=== PATIENT | female | born 1985 | race American Indian/Alaskan Native ===

== ENCOUNTER 2016-09-12 00:37 | Emergency (ER) | payer SELFPAY ==
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
[2016-09-12 03:38] LABS: Urine Drugs of Abuse Note Disclamer
[2016-09-12] MEDS ORDERED: XYLOCAINE 2% INFILTRATI ONE (03:54)
[2016-09-12] MEDS ORDERED: KEFLEX PO ONE (05:32)
[2016-09-12] MEDS ORDERED: NORCO 5/325 PO ONE (05:33)
[2016-09-12 05:38] VITALS: BP 118/71
== END 2016-09-12 06:28 | disposition home or self-care (01) ==
LOC: ED 00:37
DX: S02.40EA Zygomatic fracture, right side, initial encounter for closed fracture (principal); S02.80XA Fracture of other specified skull and facial bones, unspecified side, initial encounter for closed fracture; S01.411A Laceration without foreign body of right cheek and temporomandibular area, initial encounter; J45.909 Unspecified asthma, uncomplicated; F17.200 Nicotine dependence, unspecified, uncomplicated; Y08.89XA Assault by other specified means, initial encounter; Y93.9 Activity, unspecified; Y99.9 Unspecified external cause status; Y92.89 Other specified places as the place of occurrence of the external cause
CPT/HCPCS: 70450; 70486; 72125; 80307; 81025

== ENCOUNTER 2018-04-16 06:39 | Emergency (ER) | payer SELFPAY ==
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
== END 2018-04-16 09:26 | disposition left against medical advice (07) ==
LOC: ED 06:39
DX: Z11.3 Encounter for screening for infections with a predominantly sexual mode of transmission (principal)
CPT/HCPCS: 99281

== ENCOUNTER 2019-12-09 09:38 | Emergency (ER) | payer SELFPAY ==
[2019-12-09] MEDS ORDERED: DEXAMETHASONE 4 MG TAB PO ONE (10:27)
[2019-12-09] MEDS ORDERED: ACETAMINOPHEN W/CODEINE 300-30 MG TAB PO ONE (10:27)
--- NOTE | 2019-12-09 10:32 | Emergency Department Report ---
- General Chief Complaint: Upper Respiratory Infection Stated Complaint: HEADACHE, SWEATING Time Seen by Provider: 12/09/19 10:20 Source: patient Mode of arrival: Ambulatory Limitations: No Limitations - History of Present Illness Initial Comments: 34-year-old female with no significant past medical history presents to the ER today complaining of flulike symptoms. Patient states her symptoms started about 3 days ago. Patient reports that she has been having generalized body aches, headache, sore throat, productive cough and a fever. She states the highest measured temperature she got at home was 102. She states that she did take Tylenol yesterday for her symptoms. She denies any recent travel or known ill contacts. She reports no other symptoms at this time. MD Complaint: fever, cough, sore throat, other (Body aches) -: days(s) (3) - Related Data Previous Rx's Medication Instructions Recorded Last Taken Type Ondansetron [Zofran Odt] 4 mg PO Q6HR #20 tab.rapdis 11/15/14 Unknown Rx HYDROcodone/APAP 5-325 [Crozier 1 each PO Q6H PRN #10 tablet 09/12/16 Unknown Rx 5-325 mg TAB] cephALEXin [Keflex] 1,000 mg PO BID #28 capsule 09/12/16 Unknown Rx Acetaminophen/Codeine [Tylenol 1 tab PO Q6H PRN #15 tab 12/09/19 Unknown Rx /Codeine # 3 tab] methylPREDNISolone [Medrol 4MG 4 mg PO DAILY #1 tab.ds.pk 12/09/19 Unknown Rx DOSEPAK (21 tabs)] Allergies Allergy/AdvReac Type Severity Reaction Status Date / Time No Known Allergies Allergy Verified 04/16/18 07:04 ED Review of Systems ROS: Stated complaint: HEADACHE, SWEATING Other details as noted in HPI Comment: All other systems reviewed and negative Constitutional: chills, fever ENT: throat pain Respiratory: cough. denies: shortness of breath, SOB with exertion, SOB at rest, stridor, wheezing Cardiovascular: denies: chest pain, palpitations, dyspnea on exertion, edema, syncope Gastrointestinal: denies: abdominal pain, nausea, diarrhea Genitourinary: denies: urgency, dysuria, discharge Musculoskeletal: arthralgia, myalgia Neurological: headache ED Past Medical Hx - Past Medical History Previous Medical History?: Yes Hx Asthma: Yes - Surgical History Past Surgical History?: Yes Additional Surgical History: X 4. tonsillectomy - Social History Smoking Status: Never Smoker Substance Use Type: None - Medications Home Medications: Home Medications Medication Instructions Recorded Confirmed Last Taken Type Ondansetron [Zofran Odt] 4 mg PO Q6HR #20 tab.rapdis 11/15/14 Unknown Rx HYDROcodone/APAP 5-325 [Crozier 1 each PO Q6H PRN #10 tablet 09/12/16 Unknown Rx 5-325 mg TAB] cephALEXin [Keflex] 1,000 mg PO BID #28 capsule 09/12/16 Unknown Rx Acetaminophen/Codeine [Tylenol 1 tab PO Q6H PRN #15 tab 12/09/19 Unknown Rx /Codeine # 3 tab] methylPREDNISolone [Medrol 4MG 4 mg PO DAILY #1 tab.ds.pk 12/09/19 Unknown Rx DOSEPAK (21 tabs)] ED Physical Exam - General Limitations: No Limitations General appearance: alert, other (appears uncomfortable) - Head Head exam: Present: atraumatic, normocephalic, normal inspection - Eye Eye exam: Present: normal appearance, PERRL, EOMI Pupils: Present: normal accommodation - ENT ENT exam: Present: normal exam, mucous membranes moist, normal external ear exam - Expanded ENT Exam Expanded Throat exam: Positive: tonsillar erythema, tonsillomegaly. Negative: tonsillar exudate, R peritonsillar mass, L peritonsillar mass - Neck Neck exam: Present: normal inspection. Absent: meningismus - Respiratory Respiratory exam: Present: normal lung sounds bilaterally. Absent: respiratory distress, wheezes, rales, rhonchi, stridor - Cardiovascular Cardiovascular Exam: Present: normal rhythm, tachycardia, normal heart sounds - GI/Abdominal GI/Abdominal exam: Present: soft. Absent: distended, tenderness - Back Exam Back exam: Present: normal inspection - Neurological Exam Neurological exam: Present: alert, oriented X3, CN II-XII intact, normal gait - Psychiatric Psychiatric exam: Present: normal affect, normal mood, anxious - Skin Skin exam: Present: intact ED Course Vital Signs 12/09/19 12/09/19 12/09/19 09:40 10:56 11:56 Temperature 100.9 F H Pulse Rate 106 H Respiratory 16 18 16 Rate Blood Pressure 127/73 [Left] O2 Sat by Pulse 97 Oximetry 12/09/19 12/09/19 12/09/19 12:26 12:56 13:41 Temperature 98.6 F Pulse Rate 87 Respiratory 16 16 18 Rate Blood Pressure 132/79 [Left] O2 Sat by Pulse 100 Oximetry ED Medical Decision Making - Radiology Data Radiology results: report reviewed - Medical Decision Making Patient is now resting comfortably. She is alert and in no distress. She has a normal mental status and is neurologically intact. Patient overall appears well and is able to tolerate fluids by mouth. There is no signs of significant dehydration. There is no respiratory distress or any signs of systemic toxicity. Chest x-ray shows nothing acute. Rapid strep and flu negative for anything acut e. Urinalysis normal. Patient history, exam, and current condition does not demonstrate any infectious process such as meningitis, severe pneumonia, retropharyngeal abscess, epiglottitis, sepsis or other serious bacterial infection requiring further testing, treatment, consultation or admission at this time. Her vital signs have improved after medication. Discussed results with patient, suspect that his symptoms are related to a viral illness. Recommend that she should get the COVID-19 testing and will need to quarantine at home until she gets her test results. Gave her a list of facilit ies where she can get the COVID testing done. Her condition is stable and she is appropriate for discharge. Critical care attestation.: If time is entered above; I have spent that time in minutes in the direct care of this critically ill patient, excluding procedure time. ED Disposition Clinical Impression: Viral pharyngitis, Viral syndrome Disposition: DC-01 TO HOME OR SELFCARE Is pt being admited?: No Does the pt Need Aspirin: No Condition: Stable Instructions: Pharyngitis (ED), Viral Syndrome (ED) Additional Instructions: I recommend that you take the medications prescribed here today as directed. I recommend rest, and lots of fluids. I recommend follow up with the facilities on the list for outpatient COVID 19 testing. You will need to self quarantine at home until you get your test results. If your results are positive, you will need to quarantine for 2 weeks. I recommend close follow up with PCP. Return to ED if symptoms worsens. Prescriptions: methylPREDNISolone [Medrol 4MG DOSEPAK (21 tabs)] 4 mg PO DAILY #1 tab.ds.pk Acetaminophen/Codeine [Tylenol /Codeine # 3 tab] 1 tab PO Q6H PRN #15 tab PRN Reason: Pain Referrals: HUONG TAYLOR MD [Staff Physician] - 3-5 Days Forms: Work/School Release Form(ED) Time of Disposition: 13:23
[2019-12-09 11:09] LABS: Bacteria,Urine 1+ /HPF (Negative); Bilirubin,Urine NEG (Negative); Blood,Urine LG (Negative); Color,Urine Yellow (Yellow); Mucus,Urine FEW /HPF; Protein,Urine <15 mg/dL mg/dL (Negative)
[2019-12-09 11:12] LABS: HCG Qualitative,Urine Negative (Negative)
--- NOTE | 2019-12-09 11:54 | XRay Report ---
CHEST 2 VIEWS INDICATION / CLINICAL INFORMATION: cough/fever. COMPARISON: None available. FINDINGS: SUPPORT DEVICES: None. HEART / MEDIASTINUM: No significant abnormality. LUNGS / PLEURA: No significant pulmonary or pleural abnormality. No pneumothorax. ADDITIONAL FINDINGS: No significant additional findings. IMPRESSION: 1. No acute findings. Signer Name: Shaheed Sheppard MD Signed: 12/09/2019 11:50 AM Workstation Name: [id number]
[2019-12-09] MEDS ORDERED: KETOROLAC 60 MG/2 ML INJ IM ONE (12:20)
[2019-12-09 13:41] VITALS: BP 132/79
== END 2019-12-09 13:43 | disposition home or self-care (01) ==
LOC: ED 09:38
DX: J02.8 Acute pharyngitis due to other specified organisms (principal); B34.9 Viral infection, unspecified
CPT/HCPCS: 71046; 81001; 81025; 87116; 87400; 87430; 96372; 99283; J1885; J8540

== ENCOUNTER 2021-10-31 01:25 | Emergency (ER) | payer SELFPAY ==
--- NOTE | 2021-10-31 17:23 | Emergency Department Report ---
- General Chief Complaint: Upper Respiratory Infection Stated Complaint: FEVER Time Seen by Provider: 10/31/21 17:00 Source: patient Mode of arrival: Ambulatory Limitations: No Limitations - History of Present Illness Initial Comments: 36-year-old female multiple history including asthma, pneumonia, DVTs, presents to the emergency department upper respiratory infection. Patient reports for the past 2 days she has been experiencing cough, fever, body aches headaches feels like she has COVID again. No wheezing or shortness of breath, no chest pain, associated with nausea. Vomi ting without abdominal pain. 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 She denies being , talking without use of summer intern muscles . MD Complaint: fever, cough, nasal congestion -: Gradual, days(s) (2) Severity: moderate Improves With: nothing Worsens With: nothing Associated Symptoms: fever, chills, myalgias, headache, rhinorrhea, nasal congestion, nausea, vomiting Treatments Prior to Arrival: none - Related Data Previous Rx's Medication Instructions Recorded Last Taken Type Ondansetron [Zofran Odt] 4 mg PO Q6HR #20 tab.rapdis 11/15/14 02/04/21 Rx Apixaban [Eliquis] 5 mg PO BID #60 tablet 02/09/21 Unknown Rx HYDROcodone/APAP 5-325 [[place] 1 each PO Q6H PRN #10 tablet 02/09/21 Unknown Rx 5-325 mg TAB] dexAMETHasone [Decadron] 6 mg PO QDAY #6 tablet 02/09/21 Unknown Rx Albuterol Sulfate [Albuterol 0.63% 0.63 mg IH TID PRN #30 vial 10/31/21 Unknown Rx NEBS] Codeine Phosphate/Guaifenesin [G 5 ml PO QID PRN #100 10/31/21 Unknown Rx Tussin AC Liquid] Allergies Allergy/AdvReac Type Severity Reaction Status Date / Time No Known Allergies Allergy Verified 06/26/21 10:09 ED Review of Systems ROS: Stated complaint: FEVER Other details as noted in HPI Constitutional: see HPI ENT: as per HPI Respiratory: cough. denies: shortness of breath, SOB with exertion, SOB at rest, wheezing Cardiovascular: denies: chest pain, palpitations Endocrine: no symptoms reported. denies: intolerance to cold Gastrointestinal: nausea, vomiting Musculoskeletal: as per HPI Neurological: headache. denies: weakness, paresthesias ED Past Medical Hx - Past Medical History Previous Medical History?: No Hx Asthma: Yes - Surgical History Past Surgical History?: Yes Additional Surgical History: X 4. tonsillectomy - Social History Smoking Status: Never Smoker Substance Use Type: None - Medications Home Medications: Home Medications Medication Instructions Recorded Confirmed Last Taken Type Ondansetron [Zofran Odt] 4 mg PO Q6HR #20 tab.rapdis 11/15/14 02/05/21 02/04/21 Rx Apixaban [Eliquis] 5 mg PO BID #60 tablet 02/09/21 Unknown Rx HYDROcodone/APAP 5-325 [[place] 1 each PO Q6H PRN #10 tablet 02/09/21 Unknown Rx 5-325 mg TAB] dexAMETHasone [Decadron] 6 mg PO QDAY #6 tablet 02/09/21 Unknown Rx Albuterol Sulfate [Albuterol 0.63% 0.63 mg IH TID PRN #30 vial 10/31/21 Unknown Rx NEBS] Codeine Phosphate/Guaifenesin [G 5 ml PO QID PRN #100 10/31/21 Unknown Rx Tussin AC Liquid] ED Physical Exam - General Limitations: No Limitations General appearance: alert, in no apparent distress - Eye Eye exam: Present: normal appearance, PERRL - ENT ENT exam: Present: normal exam, normal orophraynx - Neck Neck exam: Present: normal inspection - Respiratory Respiratory exam: Present: normal lung sounds bilaterally. Absent: respiratory distress, wheezes, chest wall tenderness, accessory muscle use - Cardiovascular Cardiovascular Exam: Present: regular rate, normal rhythm. Absent: normal heart sounds - GI/Abdominal GI/Abdominal exam: Present: soft. Absent: distended, tenderness - Rectal Rectal exam: Present: deferred - External exam: Present: normal external exam. Absent: erythema - Extremities Exam Extremities exam: Present: normal inspection, full ROM. Absent: tenderness - Back Exam Back exam: Present: normal inspection, full ROM. Absent: tenderness, CVA tenderness (L) - Neurological Exam Neurological exam: Present: alert, oriented X3 - Psychiatric Psychiatric exam: Present: normal affect, normal mood - Skin Skin exam: Present: warm, dry, intact. Absent: diaphoretic, erythema ED Course Vital Signs 10/31/21 02:21 Temperature 100.0 F H Pulse Rate 114 H Respiratory 18 Rate Blood Pressure 137/87 O2 Sat by Pulse 96 Oximetry ED Medical Decision Making - Medical Decision Making Vital signs are stable, patient maintains his sats above 95% with a without exertion, she has been in the lobby for over 15 hours and has not been in any acute respiratory distress. Symptoms are most likely viral which have encouraged patient but she is quite very high. She is going to be discharged and checked back in because she needs a COVID test. Otherwise patient is stable for discharge and the rest of her symptoms can be managed outpatient with supportive therapy fluids rest breathing treatment as needed, cough medicines as needed, antiemetics handwashing, mask wearing. Critical care attestation.: If time is entered above; I have spent that time in minutes in the direct care of this critically ill patient, excluding procedure time. ED Disposition Clinical Impression: Contact with and (suspected) exposure to other viral communicable diseases, Exposure to COVID-19 virus Disposition: 01 HOME / SELF CARE / HOMELESS Is pt being admited?: No Does the pt Need Aspirin: No Condition: Stable Instructions: Airborne Precautions, [id number], Upper Respiratory Infection, Adult, [id number] Additional Instructions: Please go to any pharmacy to get tested for COVID such as [facility]. The meantime isolate yourself at home wearing a mask, fever control with Tylenol, you have some cough medications prescribed as well, rest fluids, handwashing and social distancing. Prescriptions: Albuterol Sulfate [Albuterol 0.63% NEBS] 0.63 mg IH TID PRN #30 vial PRN Reason: Wheezing Codeine Phosphate/Guaifenesin [G Tussin AC Liquid] 5 ml PO QID PRN #100 PRN Reason: Cough Referrals: HUONG TAYLOR MD [Staff Physician] - 3-5 Days
[2021-10-31 18:13] VITALS: BP 111/57
== END 2021-10-31 18:13 | disposition home or self-care (01) ==
LOC: ED 01:25
DX: B34.9 Viral infection, unspecified (principal); Z20.822 Contact with and (suspected) exposure to COVID-19; J45.909 Unspecified asthma, uncomplicated
CPT/HCPCS: 99282